=== PATIENT | female | born 1940 | race Caucasian/White ===

== ENCOUNTER 2016-07-28 16:39 | Emergency (ER) | payer MEDICARE, BC ==
[2016-07-28 16:50] VITALS: BP 188/88
[2016-07-28] MEDS ORDERED: KETOROLAC TROMETHAMINE 30 MG/ML VIAL ONE (16:57)
[2016-07-28] MEDS ORDERED: ONDANSETRON 4 MG TAB.RAPDIS ONE (16:57)
[2016-07-28] MEDS ORDERED: MORPHINE SULFATE 2 MG/ML DISP.SYRIN ONE (16:57)
[2016-07-28] MEDS ORDERED: ONDANSETRON 4 MG TAB.RAPDIS PO ONE (16:58)
[2016-07-28] MEDS ORDERED: MORPHINE SULFATE 2 MG/ML DISP.SYRIN IM ONE (16:59)
[2016-07-28] MEDS ORDERED: KETOROLAC TROMETHAMINE 30 MG/ML VIAL IM ONE (16:59)
--- NOTE | 2016-07-28 17:12 | ERNOTE ---
Back Pain ER HPI Time Seen by Provider: 07/28/16 16:46 Source: patient Immunizations: IMMUNIZATION HX Immunizations Up to Date Yes History of Influenza Vaccine No Hx Pneumococcal Vaccination No Allergies/Adverse Reactions: Allergies No Known Allergies Allergy (Verified 07/28/16 16:50) Home Medications: HOME MEDICATIONS Aspirin [Aspirin Chewable] 81 mg PO DAILY 09/18/12 [Last Taken Unknown] Atenolol/Chlorthalidone [Atenolol-Chlorthal 50-25 Tb] 1 each PO DAILY 09/18/12 [ Last Taken Unknown] Cholecalciferol (Vitamin D3) [Vitamin D] 1,000 unit PO DAILY 09/18/12 [Last Taken Unknown] Ibuprofen 400 mg PO DAILY PRN 09/18/12 [Last Taken Unknown] Levothyroxine Sodium [Synthroid] 50 mcg PO DAILY 09/18/12 [Last Taken Unknown] Pilocarpine HCl 5 mg PO BID 09/18/12 [Last Taken Unknown] Potassium Chloride [Klor-Con 10] 20 meq PO BID 09/18/12 [Last Taken Unknown] Probenecid 0.5 mg PO PRN PRN 09/18/12 [Last Taken Unknown] Simvastatin [Simvastatin (Zocor)] 40 mg PO HS 09/18/12 [Last Taken Unknown] Acetaminophen [Tylenol Extra Strength] 500 mg PO HS 04/13/13 [Last Taken Unknown ] Narrative: Here for recurrent left thoracic region muscle spasm. Pt gets spasm in the same region from time to time. No trauma reported. Denies fevers chills or dysuria Review of Systems - Review of Systems Constitutional: Present: no symptoms reported EYE: Present: no symptoms reported ENT: Present: no symptoms reported Respiratory: Present: no symptoms reported Cardiology: Present: no symptoms reported Gastrointestinal/Abdominal: Present: no symptoms reported Genitourinary: Present: no symptoms reported Musculoskeletal: Present: See HPI - Patient's Past Medical History Patient History - Medical: Hypothyroidism Patient History - Cardiac/Respiratory: No pertinent hx Patient History - Cancer: No Hx of Cancer Patient History - Surgical Procedures: T & A Patient History - Other: None LMP (females 10-50): Menopausal - Family History Mother Family History - Cardiac/Respiratory: Myocardial Infarction Father Family History - Cardiac/Respiratory: CVA/Stroke - Social History Living Situations: home Abuse History: No History of abuse Psych History: No pertinent hx Alcohol Use: none Drug Use: none - Immunizations Immunizations Up to Date: Yes Hx Pneumococcal Vaccination: No History of Influenza Vaccine: No Physical Exam - Physical Exam General Appearance: Present: wd/wn, alert, no apparent distress Ears, Nose, Throat: Present: normal ENT inspection, normal pharynx Neck: Present: normal inspection, nontender Respiratory: Present: no respiratory distress, normal breath sounds, no accessory muscle use, chest nontender, lungs clear Cardiovascular/Chest: Present: regular rate, rhythm, no murmur, normal peripheral pulses Gastrointestinal/Abdominal: Present: normal bowel sounds, nontender, nondistended Back Exam: Present: other - patient does have moderate spasm in the right thoracic paravertebral region . No lesions noted. ED Progress - Results and Orders Patient's Lab Results:: I have reviewed the patient's lab results. - Vital Signs Patient's Vital Signs:: I have reviewed the patient's vital signs. Vital Signs: Vital Signs 07/28/16 16:46 Temperature 36.8 C Pulse Rate 66 Respiratory 16 Rate Blood Pressure 188/88 O2 Sat by Pulse 100 Oximetry - Progress/Reassessment Chief Complaint: Back Pain Departure Clinical Impression: Muscle spasm - Departure Disposition: Home self-care Condition: Good Instructions: Muscle Cramps and Spasms, [id number] Referrals: Britney Rodriguez CNP [Primary Care Provider] -
[2016-07-28 17:21] LABS: Urine Bilirubin Negative (NEGATIVE); Urine Blood Negative /ul (NEGATIVE); Urine Ketone 5 mg/dL (NEGATIVE); Urine Nitrite Negative (NEGATIVE); Urine Protein Negative (NEGATIVE); Urine Specific Gravity 1.025 SP.GR. (1.005-1.010); Urine Urobilinogen Normal (NORMAL)
[2016-07-28 17:35] LABS: Urine Appearance Clear; Urine Color Yellow; Urine RBC None Seen /hpf (0-5)
[2016-07-28 17:36] LABS: Urine Bacteria 2+; Urine Hyaline Cast 0-5 /LPF; Urine Mucus TRACE; Urine Yeast TRACE
== END 2016-07-28 17:51 | disposition home or self-care (01) ==
LOC: ER 16:39
DX: M62.830 Muscle spasm of back (principal); E03.9 Hypothyroidism, unspecified

== ENCOUNTER 2017-05-03 23:37 | Emergency (ER) | payer MEDICARE, BC ==
[2017-05-04] MEDS ORDERED: KETOROLAC TROMETHAMINE 60 MG/2 ML VIAL IM ONE ×2 (01:05→01:10)
[2017-05-04] MEDS ORDERED: ORPHENADRINE CITRATE 30 MG/ML VIAL IM ONE (01:05)
--- NOTE | 2017-05-04 01:06 | ERNOTE ---
Back Pain ER HPI Presenting Symptoms: other - back spasms Time Seen by Provider: 05/04/17 00:58 Source: patient Exam Limitations: no limitations Immunizations: IMMUNIZATION HX Immunizations Up to Date No: unknown History of Influenza Vaccine No Hx Pneumococcal Vaccination No Allergies/Adverse Reactions: Allergies No Known Allergies Allergy (Verified 07/28/16 16:50) Home Medications: HOME MEDICATIONS Aspirin [Aspirin Chewable] 81 mg PO DAILY 09/18/12 [Last Taken Unknown] Atenolol/Chlorthalidone [Atenolol-Chlorthal 50-25 Tb] 1 each PO DAILY 09/18/12 [ Last Taken Unknown] Cholecalciferol (Vitamin D3) [Vitamin D] 1,000 unit PO DAILY 09/18/12 [Last Taken Unknown] Ibuprofen 400 mg PO DAILY PRN 09/18/12 [Last Taken Unknown] Levothyroxine Sodium [Synthroid] 50 mcg PO DAILY 09/18/12 [Last Taken Unknown] Pilocarpine HCl 5 mg PO BID 09/18/12 [Last Taken Unknown] Potassium Chloride [Klor-Con 10] 20 meq PO BID 09/18/12 [Last Taken Unknown] Probenecid 0.5 mg PO PRN PRN 09/18/12 [Last Taken Unknown] Simvastatin [Simvastatin (Zocor)] 40 mg PO HS 09/18/12 [Last Taken Unknown] Acetaminophen [Tylenol Extra Strength] 500 mg PO HS 04/13/13 [Last Taken Unknown ] tiZANidine HCL [Zanaflex] 2 mg PO TID PRN #10 capsule 05/04/17 [Last Taken Unknown] Narrative: Pt has been coughing for the past 2-3 days her rib muscles have been getting sore. Around noon today she began to have muscle spasms in her left lower, posterior ribs. This has happened to her intermittently for many years. She was prescribed flexeril but it does not help her much. Timing: Reports: getting worse Quality/Severity: Reports: moderate, cramping Location of pain: Reports: mid back - left Activities at Onset: Reports: other - coughing Recent Injury?: Reports: no Possible Precipitating Factor: Reports: none - cough Modifying Factors - (Worsens): Reports: movement to left, movement flexion Associated Symptoms: Denies: fever/chills Review of Systems - Review of Systems Constitutional: Present: recent illness. Absent: fever EYE: Present: no symptoms reported ENT: Present: no symptoms reported Respiratory: Present: cough. Absent: shortness of breath Cardiology: Present: no symptoms reported Gastrointestinal/Abdominal: Present: no symptoms reported Musculoskeletal: Present: See HPI, muscle pain Skin: Present: no symptoms reported Neurological: Present: no symptoms reported Endocrine: Absent: excessive sweating, flushing Hematologic/Lymphatic: Present: no symptoms reported Psych: Present: no symptoms reported - Patient's Past Medical History Patient History - Medical: Hypothyroidism Patient History - Cardiac/Respiratory: No pertinent hx, Hypertension Patient History - Cancer: No Hx of Cancer Patient History - Surgical Procedures: T & A Patient History - Other: None - Family History Mother Family History - Medical: , No pertinent hx Family History - Cardiac/Respiratory: No pertinent hx, Myocardial Infarction Family History - Cancer: No pertinent family hx Father Family History - Medical: , No pertinent hx Family History - Cardiac/Respiratory: No pertinent hx, CVA/Stroke Family History - Cancer: No pertinent family hx - Social History Living Situations: spouse Abuse History: No History of abuse Psych History: No pertinent hx Smoking Status: Former smoker Have you smoked in the past 12 months: No Do you dip or chew tobacco: No Patient requests Smoking Cessation Consult: No Initiate information on Smoking Cessation: No Alcohol Use: rarely Drug Use: none - Immunizations Immunizations Up to Date: No - unknown Hx Pneumococcal Vaccination: No History of Influenza Vaccine: No Physical Exam - Physical Exam General Appearance: Present: wd/wn, alert, mild distress Head Exam: Present: normal inspection, no evidence of injury Eye Exam: Normal inspection: bilateral Neck: Present: normal inspection, nontender Respiratory: Present: no respiratory distress, normal breath sounds, lungs clear Cardiovascular/Chest: Present: regular rate, rhythm, no murmur Gastrointestinal/Abdominal: Present: normal bowel sounds, nontender, nondistended, soft Back Exam: Present: normal range of motion, no CVA tenderness, muscle spasm - left lower ribs Extremity Exam: Present: normal inspection, normal range of motion, no edema Neurological Exam: Present: alert, oriented, normal mood/affect Skin Exam: Present: normal color, warm/dry Lymphatic Exam: Present: no adenopathy ED Progress - Vital Signs Vital Signs: Vital Signs 05/03/17 23:49 Temperature 36.3 C L Pulse Rate 75 Respiratory 16 Rate Blood Pressure 176/68 O2 Sat by Pulse 97 Oximetry - Progress/Reassessment Chief Complaint: Back Pain Departure Clinical Impression: Spasm of back muscles - Departure Disposition: Home self-care Condition: Good Instructions: Heat Therapy Referrals: Britney Rodriguez CNP [Primary Care Provider] - Prescriptions: tiZANidine HCL [Zanaflex] 2 mg PO TID PRN #10 capsule PRN Reason: Spasms
[2017-05-04] MEDS ORDERED: ORPHENADRINE CITRATE 30 MG/ML VIAL ONE (01:10)
[2017-05-04 02:57] VITALS: BP 138/75
== END 2017-05-04 01:55 | disposition home or self-care (01) ==
LOC: ER 23:37
DX: M62.830 Muscle spasm of back (principal); Z87.891 Personal history of nicotine dependence